=== PATIENT | female | born 1935 | race Caucasian/White ===

== ENCOUNTER → 2017-04-19 | Outpatient (CLI) | payer OTHER ==
[~2017-04-19] MED LIST: ADULT LOW DOSE81 MG PO; AMOXICILLIN 50500 M1 PO; ASPIRIN325 PO; BONIVA; COLACE 100 MG100 MG PO; ETODOLAC 400 M400 M1 PO; HYDROCODONE-AP1 EAC6 PO; LEVOTHYROXIN0.025 MG PO; METAMUCIL PAC1 UDPKT PO; OXYBUTYNIN 5 MG5 M1 PO; OXYCODONE HCL 55 MG PO; TRAMADOL 50 MG50 MG PO; XARELTO10 MG PO
== END ==
LOC: M.RAD 10:16
DX: J45.909 Unspecified asthma, uncomplicated (principal); R91.8 Other nonspecific abnormal finding of lung field; R50.9 Fever, unspecified

== ENCOUNTER 2018-10-31 15:51 | Emergency (ER) | payer OTHER ==
[~2018-10-31] VITALS: Ht 157.5 cm; Wt 47.6 kg
[2018-10-31 16:34] LABS: ABSOLUTE BASOPHILS 0.1 thou/uL (0.0-0.2); ABSOLUTE EOSINOPHILS 0.6 thou/uL (0.0-0.7); ABSOLUTE LYMPHOCYTES 1.6 thou/uL (0.8-5.3); ABSOLUTE MONOCYTES 0.6 thou/uL (0.0-1.2); BASOPHILS 0.8 %; EOSINOPHILS 6.4 %; HEMATOCRIT 39.3 % (37.0-47.0); LYMPHOCYTES 16.3 %; MCH 28.4 pg (26.0-34.0); MCHC 33.2 g/dL (28.0-37.0); MCV 85.5 fL (80.0-100.0); MONOCYTES 6.5 %; MPV 8.7 fl. (7.2-11.1); NUCLEATED RBCS 0 /100WBC; PLATELET COUNT* 406 thou/uL (150-400); RBC 4.59 mil/uL (4.20-5.00); RDW-CV 14.2 % (10.5-14.5); WBC 9.9 thou/uL (4.0-11.0)
[2018-10-31 16:43] LABS: ANION GAP 9 mmol/L (7-16); BUN 32 mg/dL (7-18); CALCIUM 9.3 mg/dL (8.5-10.1); CHLORIDE 101 mmol/L (98-107); CO2 30 mmol/L (21-32); CREATININE 0.9 mg/dL (0.6-1.3); GLUCOSE 113 mg/dL (70-99); POTASSIUM 3.9 mmol/L (3.5-5.1); SODIUM 140 mmol/L (136-145)
[2018-10-31 16:52] LABS: ALBUMIN 3.1 g/dL (3.4-5.0); ALKALINE PHOSPHATASE 128 U/L (46-116); SGOT 18 U/L (15-37); SGPT 46 U/L (30-65); TOTAL BILIRUBIN 0.3 mg/dL (<0.1-1.0); TOTAL PROTEIN 7.8 g/dL (6.4-8.2); TROPONIN-I LEVEL <0.06 ng/mL (<0.06)
[2018-10-31] MEDS ORDERED: LEVAQUIN 750 M750 MG PO (18:14)
[2018-10-31 18:28] VITALS: BP 136/59
--- NOTE | 2018-11-01 09:55 | EKG ---
[place] [address] ELECTROCARDIOGRAM REPORT Name: ABAD DEL TORO Room: [facility]#: [id number] Admission: 10/31/18 Attend Phys: Discharge: 10/31/18 Date of : 39 Report #: [id number] THIS REPORT FOR: //name// [facility] ED Test Date: 2018-10-31 Test Time: 16:21:16 Pat Name: ABAD DEL TORO Department: Room: Gender: F [employer] Professor: : 1935 Requested By: Daniel Smith Order Number: [id number] MD: Braydon Ervin Measurements Intervals [place] Rate: 89 P: 80 CT: 146 QRS: -20 QRSD: 125 T: 76 QT: 383 QTc: 467 Interpretive Statements Sinus rhythm Ventricular premature complex Left bundle branch block Compared to ECG 06/28/2016 10:09:20 Ventricular premature complex(es) now present Atrial premature complex(es) no longer present Electronically Signed On 11-01-2018 9:55:00 CDT by Braydon Ervin [email or web address] <ELECTRONICALLY SIGNED> By: Braydon Ervin MD, [facility] 11/01/18 0955 1621 1621 Braydon Ervin MD, [facility] /EPI
== END 2018-10-31 18:28 | disposition home or self-care (01) ==
LOC: M.ERS 15:51
PROVIDERS: Emergency Medicine Emergency Medical Services
DX: J18.9 Pneumonia, unspecified organism (principal); E03.9 Hypothyroidism, unspecified; Z90.89 Acquired absence of other organs; Z96.652 Presence of left artificial knee joint; Z90.710 Acquired absence of both cervix and uterus; Z98.890 Other specified postprocedural states; Z98.41 Cataract extraction status, right eye; Z98.42 Cataract extraction status, left eye; Z96.89 Presence of other specified functional implants; Z88.1 Allergy status to other antibiotic agents; Z88.2 Allergy status to sulfonamides; Z91.048 Other nonmedicinal substance allergy status

== ENCOUNTER → 2018-11-19 | Outpatient (CLI) | payer OTHER ==
[~2018-11-19] MED LIST changes: +LEVAQUIN 750 M750 MG PO
--- NOTE | 2018-12-03 08:10 | PF ---
[address] [address] PULMONARY FUNCTION REPORT Name: KATEYABAD Room: [facility]#: [id number] Admission: 11/19/18 Attend Phys: Henrry Manzo DO Discharge: Date of : 39 Report #: [id number] THIS REPORT FOR: //name// CC: Henrry Manzo DATE OF SERVICE: 11/19/2018 Spirogram showed normal forced vital capacity, normal FEV1 with normal ratio of 71%. The patient's mid-flow rate was normal. Effort was not adequate. The patient only exhaled for 4 seconds. However, total lung capacity was within normal limits. Diffusion capacity was within normal limits. IMPRESSION: Within normal limits pulmonary function test even with the patient having poor efforts. There was no significant obstruction or restriction. <ELECTRONICALLY SIGNED> By: George Ruiz MD 12/03/18 0810 1611 [id number] Effie Bhardwaj MD /nt
== END ==
LOC: M.PUL 09:29
DX: J45.998 Other asthma (principal); E03.9 Hypothyroidism, unspecified; J45.909 Unspecified asthma, uncomplicated; Z88.1 Allergy status to other antibiotic agents; Z88.2 Allergy status to sulfonamides; Z88.8 Allergy status to other drugs, medicaments and biological substances; Z86.010 Personal history of colon polyps; Z79.899 Other long term (current) drug therapy; Z90.49 Acquired absence of other specified parts of digestive tract; Z90.710 Acquired absence of both cervix and uterus; Z98.42 Cataract extraction status, left eye; Z98.41 Cataract extraction status, right eye

== ENCOUNTER → 2018-12-19 | Outpatient (CLI) | payer OTHER ==
--- NOTE | 2018-12-19 16:52 | CARDNUC ---
[place] [address] CARDIAC NUCLEAR IMAGING REPORT Name: ABAD DEL TORO Room: [facility]#: [id number] Admission: 12/19/18 Attend Phys: Henrry Manzo DO Discharge: Date of : 39 Date of Service: 12/19/18 1652 Report #: [id number] THIS REPORT FOR: //name// APPROVED REPORT Study performed: 12/19/2018 14:12:18 Exam: Nuclear Stress Test Indication: Dyspnea, Fatigue Patient Location: Out-Patient Stress Tech: Sisi Valentin Stress Nurse: Joyce Norris RN NM Tech:[place] Hammer Ht: 5 ft 3 in Wt: 106 lbs BSA: 1.48 m2 BMI: 18.77 Medical History Medications: no cardiac meds Allergies: zithromycin, boniva, iodine, meloxicam, prednisone, sulfa Cardiac Risk Factors: age, fml hx Exercise History: Indeterminate Stress Test Details Stress Test: Pharmacologic stress testing performed using 0.4 mg of regadenoson per 5 mL given IV over 10 seconds. Reason for pharmacologic stress test: physical limitation. HR Resting HR: 62 bpm Max Heart Rate (APMHR): 139 bpm Max HR Achieved: 109 bpm Target HR (85% APMHR): 118 bpm % of APMHR: 78 Recovery HR: 103 bpm BP Resting BP: 152/70 mmHg Max BP: 165/70 mmHg ECG Resting ECG: Sinus Rhythm, LBBB Stress ECG: Sinus Rhythm, LBBB ST Change: None Arrhythmia: VPC's Recovery ECG: Sinus Rhythm, [place] [address] CARDIAC NUCLEAR IMAGING REPORT Name: KATEYABAD Room: [facility]#: [id number] Admission: 12/19/18 Attend Phys: Henrry Manzo DO Discharge: Date of : 39 Date of Service: 12/19/18 1652 Report #: [id number] Change: None Recovery Arrhythmia: VPC's Clinical Reason for Termination: Completed protocol Exercise duration: 0 min sec Exercise capacity: 1 METs The patient tolerated Lexiscan infusion without significant cardiac symptoms. Nurse Comments pt too frail and unstead gait to wak on treadmill Stress ECG Conclusion The baseline 12-lead EKG shows sinus rhythm with left bundle-branch block. EKGs obtained during and post Lexiscan infusion show sinus rhythm and sinus tachycardia with left bundle-branch block. There were frequent unifocal premature ventricular contractions and occasional bigeminy in stress and recovery phases. NM EXAM: Myocardial Perfusion REST/STRESS Imaging Protocol: Rest Tc-99m/Stress Tc-99m 1 day Resting Data Rest SPECT myocardial perfusion imaging was performed in supine position 30 minutes following the intravenous injection of 11.2 mCi of Tc-99m Sestamibi. Time of rest injection: 13:00 The images were gated to evaluate regional wall motion and calculate left ventricular ejection fraction. Administration Route: IV Administration Site: Right Arm Pharmacologic Stress Pharmacologic stress test was performed by injecting Regadenoson 0.4 mg IV push followed by the intravenous injection of 35.8 mCi of Tc-99m Sestamibi. Time of stress injection: 14:25 Administration Route: IV Administration Site: Right Arm Heart Rate at time of stress injection: 106 bpm. Gated Stress SPECT was performed 40 minutes after stress injection. The images were gated to evaluate regional wall motion and calculate left ventricular ejection fraction. [place] [address] CARDIAC NUCLEAR IMAGING REPORT Name: ABAD DEL TORO Room: [facility]#: [id number] Admission: 12/19/18 Attend Phys: Henrry Manzo DO Discharge: Date of : 39 Date of Service: 12/19/18 1652 Report #: [id number] Study Quality Study: Good Artifact: No artifact Study Data At rest, the left ventricular ejection fraction was 57%.. Post stress, the left ventricular ejection was 56%.. TID = 1.09. Perfusion Myocardial perfusion images at rest and post Lexiscan stress show uniform uptake of the radioisotope without the myocardium without significant defect. Wall Motion Global LV systolic function is well-preserved. There is a septal wall motion abnormality noted likely due to underlying left bundle branch block. Nuclear Conclusion ECG Findings: non-diagnostic Clinical Findings: negative for ischemia Nuclear Findings: negative for ischemia Exercise Capacity: not assessed Left Ventricular Function: preserved Risk Study: low Myocardial perfusion images show no defect to suggest infarct or ischemia. Global LV systolic function is preserved. This is a low risk study. <Conclusion> The baseline 12-lead EKG shows sinus rhythm with left bundle-branch block. EKGs obtained during and post Lexiscan infusion show sinus rhythm and sinus tachycardia with left bundle-branch block. There were frequent unifocal premature ventricular contractions and occasional bigeminy in stress and recovery phases. <ELECTRONICALLY SIGNED> By: Spencer Rosario MD, FACC 12/19/181651 51 51 Spencer Rosario MD, FACC /INF
== END ==
LOC: M.NUC 12:31
DX: R06.00 Dyspnea, unspecified (principal); R05 Cough; R53.83 Other fatigue; Z79.899 Other long term (current) drug therapy

== ENCOUNTER 2019-04-07 12:15 | Emergency (ER) | payer OTHER ==
[~2019-04-07] VITALS: Ht 157.5 cm; Wt 47.6 kg
[2019-04-07] MEDS ORDERED: NORCO 5-325 TA1 EAC1 PO (14:37)
[2019-04-07 14:55] VITALS: BP 155/68
== END 2019-04-07 14:55 | disposition home or self-care (01) ==
LOC: M.ERS 12:15
DX: S70.02XA Contusion of left hip, initial encounter (principal); S70.01XA Contusion of right hip, initial encounter; E03.9 Hypothyroidism, unspecified; Z88.1 Allergy status to other antibiotic agents; Z88.2 Allergy status to sulfonamides; Z91.041 Radiographic dye allergy status; Z88.8 Allergy status to other drugs, medicaments and biological substances; Z90.710 Acquired absence of both cervix and uterus; W01.0XXA Fall on same level from slipping, tripping and stumbling without subsequent striking against object, initial encounter; Y93.89 Activity, other specified; Y92.89 Other specified places as the place of occurrence of the external cause; Y99.8 Other external cause status

== ENCOUNTER → 2019-10-21 | Outpatient (CLI) | payer OTHER ==
[~2019-10-21] MED LIST changes: +NORCO 5-325 TA1 EAC1 PO
== END ==
LOC: M.RAD 13:11
PROVIDERS: ATTEND Family Medicine
DX: M81.0 Age-related osteoporosis without current pathological fracture (principal); M85.88 Other specified disorders of bone density and structure, other site; Z78.0 Asymptomatic menopausal state

== ENCOUNTER → 2020-05-17 | Outpatient (CLI) | payer OTHER | LOC: M.RAD 04-21 14:25 | PROVIDERS: ATTEND Internal Medicine Gastroenterology | DX: R13.10 Dysphagia, unspecified (principal) ==

== ENCOUNTER 2020-07-22 11:48 | Emergency (ER) | payer OTHER ==
[~2020-07-22] VITALS: Ht 162.6 cm; Wt 49.0 kg
[2020-07-22] MEDS ORDERED: AUGMENTIN600 MG/5 M PO (14:19)
[2020-07-22] MEDS ORDERED: IMOVAX RABIE2.5 UNIT IM (16:08)
[2020-07-22] MEDS ORDERED: NORCO5 PO ×3 (16:27→16:31)
[2020-07-22 16:35] VITALS: BP 134/68
== END 2020-07-22 16:35 | disposition home or self-care (01) ==
LOC: M.ERS 11:48
DX: S51.811A Laceration without foreign body of right forearm, initial encounter (principal); E03.9 Hypothyroidism, unspecified; Z20.3 Contact with and (suspected) exposure to rabies; Z88.1 Allergy status to other antibiotic agents; Z88.6 Allergy status to analgesic agent; Z88.8 Allergy status to other drugs, medicaments and biological substances; Z79.899 Other long term (current) drug therapy; Z90.710 Acquired absence of both cervix and uterus; Z98.890 Other specified postprocedural states; W54.0XXA Bitten by dog, initial encounter; Y93.89 Activity, other specified; Y92.89 Other specified places as the place of occurrence of the external cause; Y99.9 Unspecified external cause status

== ENCOUNTER → 2020-07-25 | Outpatient (CLI) | payer OTHER ==
[~2020-07-25] MED LIST changes: +AUGMENTIN600 MG/5 M PO; +IMOVAX RABIE2.5 UNIT IM; +NORCO5 PO
== END ==
LOC: M.OPS 09:05
PROVIDERS: ATTEND Emergency Medicine
DX: Z23 Encounter for immunization (principal)

== ENCOUNTER 2020-07-29 08:26 | Emergency (ER) | payer OTHER ==
[~2020-07-29] VITALS: Ht 162.6 cm; Wt 49.9 kg
[2020-07-29 09:23] VITALS: BP 155/99
== END 2020-07-29 09:24 | disposition home or self-care (01) ==
LOC: M.ERS 08:26
DX: Z23 Encounter for immunization (principal); E03.9 Hypothyroidism, unspecified; Z20.3 Contact with and (suspected) exposure to rabies; Z88.1 Allergy status to other antibiotic agents; Z88.8 Allergy status to other drugs, medicaments and biological substances; Z79.899 Other long term (current) drug therapy; Z90.710 Acquired absence of both cervix and uterus

== ENCOUNTER → 2020-08-05 | Outpatient (CLI) | payer OTHER | LOC: M.OPS 10:06 | PROVIDERS: ATTEND Physician Assistant | DX: Z23 Encounter for immunization (principal); Z20.3 Contact with and (suspected) exposure to rabies; Z88.2 Allergy status to sulfonamides; Z88.1 Allergy status to other antibiotic agents; Z88.8 Allergy status to other drugs, medicaments and biological substances ==

== ENCOUNTER → 2020-08-19 | Outpatient (CLI) | payer OTHER | LOC: M.OPS 10:25 | DX: Z23 Encounter for immunization (principal); Z20.3 Contact with and (suspected) exposure to rabies ==